=== PATIENT | male | born 1980 | race Caucasian/White ===

== ENCOUNTER 2022-01-14 22:37 | Inpatient (IN) | payer OTHER, SELFPAY ==
--- NOTE | ~2022-01-14 | XR_ITS ---
XR abdomen/kub 1V 01/17/2022 18:07 INDICATION: Abdominal pain TECHNIQUE: KUB COMPARISON: None FINDINGS: Bowel gas pattern is normal. Moderate colonic fecal loading. There is no evidence of free a ir, mass, organomegaly, ascites or obstruction. No abnormal calculi are seen. The bones appear inta ct. IMPRESSION: 1: No acute abdominal abnormality identified. Reviewed, dictated and finalized at location A.
--- NOTE | ~2022-01-14 | CT_ITS ---
EXAMINATION: CT cervical spine wo con DATE: 01/18/2022 15:15 INDICATION: Upper extremity weakness. TECHNIQUE: Computed tomography (CT) of the cervical spine was performed without intravenous contrast. Automated exposure control and iterative reconstruction technique were employed. The dose-length pro duct was 215.07 mGy-cm. COMPARISON: None FINDINGS: There is mild emphysema. Bone alignment is normal. Vertebral body heights and intervertebra l disc heights are normal. The following disc levels are specifically discussed: C2-C3: There is no uncovertebral joint osteoarthritis. There is mild bilateral facet joint osteoarthr itis. There is no neural foraminal stenosis. There is no central canal stenosis. C3-C4: There is mild bilateral uncovertebral joint osteoarthritis. There is no facet joint osteoarthr itis. There is no neural foraminal stenosis. There is no central canal stenosis. C4-C5: There is no uncovertebral joint osteoarthritis. There is mild left facet joint osteoarthritis. There is no neural foraminal stenosis. There is no central canal stenosis. C5-C6: There is mild bilateral uncovertebral joint osteoarthritis. There is mild bilateral facet join t osteoarthritis. There is mild right neural foraminal stenosis. There is mild central canal stenosis . C6-C7: There is no uncovertebral joint osteoarthritis. There is mild right facet joint osteoarthritis . There is no neural foraminal stenosis. There is no central canal stenosis. C7-T1: There is no uncovertebral joint osteoarthritis. There is mild bilateral facet joint osteoarthr itis. There is no neural foraminal stenosis. There is no central canal stenosis. IMPRESSION: 1. Mild cervical spondylosis. 2. Mild emphysema. Reviewed, dictated and finalized at location A.
--- NOTE | ~2022-01-14 | XR_ITS ---
EXAMINATION: XR chest 1V portable Exam Date/Time: 01/14/2022 23:00 CDT HISTORY: AMS Comparison: None available. RESULT: Lines, tubes, and devices: None. Lungs and pleura: Clear. Cardiomediastinal silhouette: Unremarkable. Other: No acute osseous or upper abdominal finding. IMPRESSION: No acute cardiopulmonary process. Reviewed, dictated and finalized at location K.
--- NOTE | ~2022-01-14 | CT_ITS ---
EXAMINATION: CT brain wo con DATE: 01/14/2022 23:16 INDICATION: Altered mental status. TECHNIQUE: Computed tomography (CT) of the head was performed without intravenous contrast. The mA wa s adjusted according to patient size. Iterative reconstruction technique was employed. The dose-lengt h product was 605.33 mGy-cm. COMPARISON: None FINDINGS: There is no intracranial hemorrhage, acute infarction, or abnormal intracranial mass lesion . The ventricles are normal in size. There is mucosal thickening in the paranasal sinuses. The orbits are normal. The mastoid air cells are normal. IMPRESSION: 1. Normal brain. Reviewed, dictated and finalized at location A. IMPRESSION: 1. Normal brain.
--- NOTE | ~2022-01-14 | CT_ITS ---
EXAMINATION: CT brain wo con DATE: 01/18/2022 15:15 INDICATION: Upper extremity weakness. TECHNIQUE: Computed tomography (CT) of the head was performed without intravenous contrast. The mA wa s adjusted according to patient size. Iterative reconstruction technique was employed. The dose-lengt h product was 681.00 mGy-cm. COMPARISON: Head CT 01/14/2022 FINDINGS: There is no intracranial hemorrhage, acute infarction, or abnormal intracranial mass lesion . The ventricles are normal in size. The orbits are normal. There is mucosal thickening in the parana rosie sinuses. The mastoid air cells are normal. IMPRESSION: 1. Normal brain. Reviewed, dictated and finalized at location A. IMPRESSION: 1. Normal brain.
[2022-01-14 22:36] VITALS: BP 165/100; PULSE 47; RESP 17; O2SAT 100
[2022-01-14 22:46] VITALS: BP 155/101; PULSE 64; RESP 12; O2SAT 100
--- NOTE | 2022-01-14 22:51 | ECG_ITS ---
Measurements Intervals [place] Rate: 60 P: 60 MT: 147 QRS: 72 QRSD: 94 T: 71 QT: 430 QTc: 432 Interpretive Statements SINUS RHYTHM CONSIDER ANTERIOR INFARCT, AGE INDETERMINATE BORDERLINE T WAVE ABNORMALITY- ANTERIOR LEADS ABNORMAL ECG NO PREVIOUS ECG AVAILABLE FOR COMPARISON Electronically Signed On 01-15-2022 10:27:25 CDT by Siddhartha Harrison D.O.
[2022-01-14 22:52] LABS: Glucose Point of Care 131 mg/dl (65-105)
[2022-01-14 23:01] VITALS: BP 161/96; PULSE 56; RESP 16; O2SAT 100
[2022-01-14 23:16] VITALS: BP 136/107; PULSE 57; RESP 15
[2022-01-14] MEDS: SODIUM CHLORIDE 0.9% IV 1,000 ML 999 ML IV CONT (23:30)
[2022-01-14 23:31] VITALS: BP 154/110; PULSE 48; RESP 12; O2SAT 100
[2022-01-14 23:49] LABS: Alanine Aminotransferase 26 U/L (6-50); Albumin Level 4.2 g/dL (3.5-5.1); Alkaline Phosphatase 82 U/L (38-126); Anion Gap 12 mmol/L (8-16); Aspartate Amino Transferase 30 U/L (17-59); Bilirubin,Total 0.5 mg/dL (0.2-1.3); Blood Urea Nitrogen 16 mg/dL (9-20); Calcium 8.9 mg/dL (8.4-10.2); Carbon Dioxide 25 mmol/L (22-30); Chloride 100 mmol/L (98-107); Estimated Glomerular Filt Rate > 60; Glucose 106 mg/dL (65-110); Lipase 37 U/L (23-300); Magnesium 1.9 mg/dL (1.6-2.3); Potassium 3.7 mmol/L (3.4-5.0); Sodium 137 mmol/L (137-145)
[2022-01-14 23:50] LABS: Lactic Acid Reflex 1.4 mmol/L (0.7-2.0)
[2022-01-14 23:55] LABS: Prothrombin Time 13.1 Seconds (11.1-14.7)
[2022-01-14 23:58] LABS: NT Pro B Type Natriuretic Pept 203 pg/mL (5-100)
[2022-01-15] VITALS (15 sets, daily range): BP systolic 136–171; BP diastolic 79–113; PULSE 55–84; RESP 11–24; TEMP 36–37.3; O2SAT 98–100; BMI 21.2
[2022-01-15] LABS: Troponin I < 0.012 ng/mL (0.000-0.034)
[2022-01-15 01:03] LABS: Bilirubin Urine Negative (Negative); Blood Urine Negative (Negative); Color Urine Yellow (Yellow); Glucose Urine UA Negative (Negative); Ketones Urine Negative (Negative); Leukocyte Esterase Ur Negative LEU/UL (Negative); Nitrate Urine Negative (Negative); Protein Urine Negative (Negative); Specific Grav Ur 1.025 (1.001-1.035); Urobilinogen Urine 0.2 mg/dL (<2.0)
[2022-01-15 01:05] LABS: Barbiturate Screen Urine Negative (Negative); Benzodiazepines Screen Urine Negative (Negative)
[2022-01-15 01:08] LABS: Mucus Urine Rare /lpf; WBC Urine 21-30 /hpf
[2022-01-15 01:12] LABS: Add Urine Microscopic? YES; Appearance Urine Slightly Cloudy (Clear)
[2022-01-15 01:20] LABS: Cannabinoid Screen Urine Positive (Negative); Cocaine Screen Urine Negative (Negative); Methadone Screen Urine Negative (Negative); Opiate Screen Urine Negative (Negative); Phencyclidine Screen Urine Negative (Negative)
[2022-01-15 01:21] LABS: Basophils Percent Auto 0.2 % (0.2-1.2); Eosinophils Percent Auto 0.3 % (0-4.4); Hematocrit 37.9 % (42.0-52.0); Hemoglobin 12.3 g/dL (14.0-18.0); Immature Granulocyte Absolute 0.04 K/mm3 (0.00-0.031); Immature Granulocyte Percent A 0.3 % (0-0.5); Lymphocytes Absolute Auto 0.99 K/mm3 (0.9-3.2); Lymphocytes Percent Auto 7.4 % (18.3-44.2); Mean Corpuscular HGB Conc 32.5 g/dl (32-36); Mean Corpuscular Hemoglobin 27.6 pg (26-34); Mean Corpuscular Volume 85.2 fl (80-100); Mean Platelet Volume 10.5 fl (7.4-10.4); Monocytes Absolute Auto 0.7 K/mm3 (0.1-0.6); Monocytes Percent Auto 5.1 % (2.6-8.5); Neutrophils Absolute Auto 11.6 K/mm3 (1.3-6.7); Neutrophils Percent Auto 86.7 % (45.5-73.1); Platelet Count Result 237 k/mm3 (150-375); Red Blood Count 4.45 M/mm3 (4.6-6.20); Red Cell Distribution Width 12.9 % (11.5-14.5); White Blood Count 13.4 K/mm3 (4.5-10.0)
[2022-01-15 01:46] LABS: Amphetamine Screen Urine Positive (Negative)
[2022-01-15] MEDS: BUPRENORPHINE HCL (*CRX) 2 MG SUBLINGUAL TABLET 8 MG PO (01:46)
[2022-01-15] MEDS: BUPRENORPHINE HCL (*CRX) 2 MG SUBLINGUAL TABLET 4 MG PO ×2 (04:50→11:34)
[2022-01-15] MEDS: ONDANSETRON INJ 4 MG/2 ML VIAL 8 MG IV PUSH (04:55)
--- NOTE | 2022-01-15 05:26 | ED.GENADULT ---
HPI - General Adult General Chief complaint: Abdominal Pain Stated complaint: N/V/OPIOD W/D Time Seen by Provider: 01/14/22 22:41 History of Present Illness HPI narrative: This is a 41-year-old male presenting to ED after being found by EMS in the street. Patient was recently released from retirement 3 days ago. That was the last time he used fentanyl. Now he is homeless. He has not used fentanyl 3 days and is now complaining of nausea/vomiting abdominal pain and headache. Patient denies use of other illicit drugs or alcohol. Patient denies trauma. Denies fever chills chest pain or difficulty breathing. Related Data Allergies Allergy/AdvReac Type Severity Reaction Status Date / Time No Known Allergies Allergy Verified 01/14/22 22:54 Review of Systems Review of Systems: CONSTITUTIONAL: Denies night sweats. EYES: No eye pain ENT: Denies rhinorrhea CARDIOVASCULAR: Denies palpitations RESPIRATORY: Denies hemoptysis GASTROINTESTINAL: Denies hematemesis GENITOURINARY: Denies hematuria. SKIN: Denies rash MUSCULOSKELETAL: Denies myalgia. NEUROLOGIC: Denies weakness. PSYCHIATRIC: Denies delusions PMF Past Medical History Medical History (Updated 01/15/22 @ 06:16 by Shantanu Grier MD) Homeless Opioid use disorder Social History Social History (Updated 01/15/22 @ 05:28 by Shantanu Grier MD) Social History: Positive for fentanyl use. Exam Narrative: APPEARANCE: Patient is disheveled and malodorous. He is A&O x3. Head atraumatic. EYES: PERRLA/EOMI, Pupils 2 mm equal and reactive. NOSE: Normal no drainage NECK: Supple, Trachea midline RESPIRATORY: CTAB, No increased work of breathing. CARDIOVASCULAR: S1S2 appreciated ABDOMINAL: Soft, nontender, nondistended, MUSCULOSKELETAl: No obvious deformities NEURO: Alert. Moving 4/4 extremities SKIN:: Patient has goose bumps, skin is warm dry. Patient has tried turned on his hands. PSYCHIATRIC: Normal affect Course Vital Signs Vital signs: Vital Signs Pulse Rate 47 L 01/14/22 22:36 Respiratory Rate 17 01/14/22 22:36 Blood Pressure 165/100 H 01/14/22 22:36 Pulse Oximetry 100 01/14/22 22:36 Pulse Rate 60 01/15/22 05:37 Respiratory Rate 18 01/15/22 05:37 Blood Pressure 139/97 H 01/15/22 05:37 Pulse Oximetry 100 01/15/22 05:37 Medical Decision Making [facility] Narrative Medical decision making narrative: This is a 41-year-old male who was found down by EMS. When he first arrived he was unable to provide much information and a broad workup was ordered. CT head was negative for any acute intracranial process. Lab work revealed a mildly elevated white blood cell count but no evidence of infection. Hemoglobin was 12.3. Basic metabolic panel is within normal limits. Urinalysis was positive for red blood cells and 21-30 white blood cells. Patient started on ceftriaxone. Drug screen is positive for amphetamines and cannabinoids. It is negative for opiates however the patient admits to using fentanyl was not show up on our drug screens. Chest x-ray was negative for any acute cardiopulmonary process. COWS Score for Opiate Withdrawal from [email or web address] on 01/15/2022 All calculations should be rechecked by clinician prior to use RESULT SUMMARY: 18 points Moderate withdrawal INPUTS: Resting Pulse Rate (BPM) ?> 0 = <=0 Sweating ?> 1 = Subjective report of chills or flushing Restlessness observation during assessment ?> 1 = Reports difficulty sitting still, but is able to do so Pupil size ?> 1 = Pupils possibly larger than normal for room light Bone or joint aches ?> 2 = Patient reports severe diffuse aching of joints/ muscles Runny nose or tearing ?> 1 = Nasal stuffiness or unusually moist eyes GI Upset ?> 3 = Vomiting or diarrhea Tremor observation of outstretched hands ?> 2 = Slight tremor observable Yawning observation during assessment ?> 2 = Yawning three or more times during assessment Anxiety or irritability ?>
--- NOTE | 2022-01-15 05:41 | PC.NURSE ---
Pt PO challenged with fiona skinner and carline crespo
[2022-01-15] MEDS: PROCHLORPERAZINE EDISYLATE 10 MG/2 ML VIAL IV PUSH (05:52)
[2022-01-15] MEDS: FAMOTIDINE 20 MG/2 ML VIAL IV PUSH ×2 (05:56→21:33)
[2022-01-15] MEDS: SODIUM CHLORIDE 0.9% IV 1,000 ML 999 ML IV CONT (06:01)
[2022-01-15 06:54] LABS: Ethanol < 10 mg/dL (<10)
[2022-01-15 07:13] LABS: SARS-CoV-2 RNA PCR Negative
--- NOTE | 2022-01-15 08:07 | PC.NURSE ---
When collecting pt belongings this RN only found one earing. Confirmed with pt that that is all he has on him.
--- NOTE | 2022-01-15 08:34 | ADMGEN ---
This patient, Tadeo Maher, was admitted to [facility] Surg Room 305-02. Patient/family oriented to hospital policies and general routines including ID bracelet, bed and alarms, visiting hours, pain management, procedures, bathroom and other care routines, personal items, smoking policy, room service/diet, and visiting hours. Information on how to activate the Rapid Response Team has been discussed. Patient/Family are encouraged to report perceived risks to care and to ask questions if they do not understand what they are told or what they should do.
[2022-01-15] MEDS: SODIUM CHLORIDE 0.9% IV 1,000 ML 125 ML IV CONT (10:23)
[2022-01-15] MEDS: cloNIDine HCL 0.1 MG TABLET PO ×2 (10:23→21:32)
--- NOTE | 2022-01-15 12:08 | PCNSR ---
On 01/15/22, the student,Art Salazar, provided care and completed [employer] documentation on this patient. I have reviewed the student's documentation and agree with the findings.
--- NOTE | 2022-01-15 19:12 | PM.IMHP ---
H&P: HPI History of Present Illness Date/Time: 01/15/22 19:12 Chief Complaint: 41-year-old male with past medical history significant for opioid use disorder is presenting with nausea, vomiting abdominal pain. Patient was found by EMS in the street and thought to be homeless. He was released from senior living about 3 days ago. He states he used fentanyl about 3 days ago and has not used any other substances including alcohol since then. He was given Suboxone and antiemetics in the ER that helped significantly. At the time my evaluation, the patient denies chest pain or shortness of breath. No nausea, vomiting or diarrhea. No fevers or chills. He states he has been on Suboxone in the past when trying to come off of fentanyl. He is not in any clinics now but is interested in getting back into one. He would like to get off fentanyl and get help. He has had clonidine in the past, and this helped with his withdrawal symptoms so he is requesting this again. Review of Systems Review of Systems: 12 point review of systems was assessed and was negative except as noted in the HPI PMFSH Past Medical History Medical History Homeless Opioid use disorder Family History Family History Other No known health problems Social History Social History Social History: Positive for fentanyl use. Years smoked: 20 Smoking status: Current every day smoker Tobacco type: cigarettes and e-cigarettes/vaping Alcohol intake: never Substance use: current Substance use type: marijuana, methamphetamine and other Spiritual care concerns: No Meds Home Medications and Allergies Home Medications Medication Instructions Recorded Confirmed Type No Home Medications 01/15/22 01/15/22 History Allergies Allergy/AdvReac Type Severity Reaction Status Date / Time No Known Allergies Allergy Verified 01/15/22 08:26 Vital Signs Vital Signs - 24 hr 01/14/22 22:36 01/15/22 01:54 01/15/22 05:37 Temperature Pulse Rate 47 L 55 L 60 Respiratory Rate 17 15 18 Blood Pressure 165/100 H 142/109 H 139/97 H Pulse Oximetry 100 100 100 Oxygen Delivery 01/14/22 22:46 01/14/22 23:01 01/14/22 23:16 Temperature Pulse Rate 64 56 L 57 L Respiratory Rate 12 16 15 Blood Pressure 155/101 H 161/96 H 136/107 H Pulse Oximetry 100 100 Oxygen Delivery 01/14/22 23:31 01/15/22 00:01 01/15/22 00:16 Temperature Pulse Rate 48 L 75 Respiratory Rate 12 24 H Blood Pressure 154/110 H 155/109 H 171/113 H Pulse Oximetry 100 Oxygen Delivery 01/15/22 01:57 01/15/22 02:01 01/15/22 02:46 Temperature Pulse Rate 60 56 L 67 Respiratory Rate 18 12 15 Blood Pressure 142/109 H 139/101 H 145/93 H Pulse Oximetry Oxygen Delivery 01/15/22 03:31 01/15/22 05:38 01/15/22 05:46 Temperature Pulse Rate 66 62 59 L Respiratory Rate 17 11 L 12 Blood Pressure 136/86 139/97 H 140/94 H Pulse Oximetry Oxygen Delivery 01/15/22 06:31 01/15/22 07:12 01/15/22 08:36 Temperature 98.3 F 97.5 F L Pulse Rate 61 84 69 Respiratory Rate 15 16 19 Blood Pressure 157/108 H 155/94 H 145/90 H Pulse Oximetry 98 99 Oxygen Delivery 01/15/22 08:25 01/15/22 14:00 Temperature 96.8 F L Pulse Rate 65 Respiratory Rate 18 Blood Pressure 139/79 Pulse Oximetry 100 Oxygen Delivery Room Air Exam Narrative: General: No acute distress, alert and oriented per baseline HEENT: Atraumatic, normocephalic, mucous membranes moist CV: Regular rate and rhythm, S1, S2 Lungs: Clear to auscultation bilaterally, no rales or crackles noted, no wheezes, good air entry Abdomen: Soft, nontender, nondistended Extremities: Normal to inspection Skin: No rashes noted, no lesions or wounds seen Psych: Euthymic, normal affect H&P: Results Labs Labs: Short CBC
[2022-01-16 05:41] VITALS: BP 136/88; PULSE 56; RESP 18; TEMP 36.9; O2SAT 100
[2022-01-16] MEDS: BUPRENORPHINE HCL (*CRX) 2 MG SUBLINGUAL TABLET 4 MG PO (08:40)
[2022-01-16] MEDS: cloNIDine HCL 0.1 MG TABLET PO ×2 (08:41→20:13)
[2022-01-16] MEDS: hydrOXYzine HCL 25 MG TABLET PO (08:43)
[2022-01-16] MEDS: FAMOTIDINE 20 MG/2 ML VIAL IV PUSH ×2 (08:43→20:13)
[2022-01-16 10:09] LABS: Basophils Percent Auto 0.4 % (0.2-1.2); Eosinophils Absolute Auto 0.1 K/mm3 (0-0.3); Eosinophils Percent Auto 0.7 % (0-4.4); Hematocrit 39.6 % (42.0-52.0); Hemoglobin 12.7 g/dL (14.0-18.0); Immature Granulocyte Absolute 0.03 K/mm3 (0.00-0.031); Immature Granulocyte Percent A 0.4 % (0-0.5); Lymphocytes Absolute Auto 1.11 K/mm3 (0.9-3.2); Lymphocytes Percent Auto 14.6 % (18.3-44.2); Mean Corpuscular HGB Conc 32.1 g/dl (32-36); Mean Corpuscular Hemoglobin 27.6 pg (26-34); Mean Corpuscular Volume 86.1 fl (80-100); Mean Platelet Volume 10.8 fl (7.4-10.4); Monocytes Absolute Auto 0.8 K/mm3 (0.1-0.6); Monocytes Percent Auto 10.5 % (2.6-8.5); Neutrophils Absolute Auto 5.6 K/mm3 (1.3-6.7); Neutrophils Percent Auto 73.4 % (45.5-73.1); Platelet Count Result 266 k/mm3 (150-375); Red Cell Distribution Width 13.3 % (11.5-14.5); White Blood Count 7.6 K/mm3 (4.5-10.0)
[2022-01-16 10:19] LABS: Anion Gap 15 mmol/L (8-16); Blood Urea Nitrogen 13 mg/dL (9-20); Calcium 8.9 mg/dL (8.4-10.2); Carbon Dioxide 23 mmol/L (22-30); Chloride 99 mmol/L (98-107); Estimated CRCL calculation 144 ml/min; Estimated Glomerular Filt Rate > 60; Glucose 126 mg/dL (65-110); Potassium 3.4 mmol/L (3.4-5.0); Sodium 137 mmol/L (137-145)
--- NOTE | 2022-01-16 10:44 | PM.IMPN ---
Progress Note: A&P Assessment and Plan (1) Opiate withdrawal: Code(s): F11.93 - Opioid use, unspecified with withdrawal Status: Acute Assessment and Plan: Suboxone 4 mg daily, care coordination consult for Suboxone Clinic outpatient referral, clonidine and hydroxyzine for withdrawal symptoms, IV fluids, supportive care with antiemetics 01/16: will continue supportive care for today as patient appears to still be having significant withdrawal symptoms but does still say he wants to abstain from opioid use. Continue IVF for now. (2) Homeless: Code(s): Z59.00 - Homelessness unspecified Status: Acute Assessment and Plan: Care coordination consulting. (3) Opioid use disorder: Code(s): F11.90 - Opioid use, unspecified, uncomplicated Status: Acute Assessment and Plan: See above (4) Leukocytosis: Code(s): D72.829 - Elevated white blood cell count, unspecified Status: Acute Assessment and Plan: Could be reactive, could be secondary to UTI, trend. 01/16: leukocytosis resolve without antibiotics. (5) Acute UTI: Code(s): N39.0 - Urinary tract infection, site not specified Status: Acute Assessment and Plan: Started on Rocephin in the ER, will continue this until culture comes back, urinalysis was abnormal 01/16: urine culture finalized with no growth. Plan DVT prophylaxis with SCDs GI prophylaxis not indicated Code status full code Subjective Date/time seen: 01/16/22 23:44 Patient still says he doesn't feel well. Says he has nausea. Denies vomiting. Denies palpitations or diarrhe. Review of Systems Gastrointestinal: Gastrointestinal: Denies diarrhea, Reports nausea and Denies vomiting Exam Narrative: General: No acute distress, alert and oriented per baseline HEENT: Atraumatic, normocephalic, mucous membranes moist CV: Regular rate and rhythm, S1, S2 Lungs: Clear to auscultation bilaterally, no rales or crackles noted, no wheezes Extremities: Normal to inspection Skin: No rashes noted, no lesions or wounds seen. Multiple tattoos. Diaphoretic/sweaty Objective Data Vital Signs Vital Signs: Vital Signs - 24 hr 01/16/22 05:41 01/16/22 14:00 01/16/22 08:30 Temperature 98.4 F 97.4 F L Pulse Rate 56 L 61 Respiratory Rate 18 18 Blood Pressure 136/88 122/74 Pulse Oximetry 100 100 Oxygen Delivery Room Air 01/16/22 22:00 Temperature 98.1 F Pulse Rate 60 Respiratory Rate 18 Blood Pressure 130/93 H Pulse Oximetry 100 Oxygen Delivery Intake/Output Intake/Output: Intake & Output 01/13/22 01/14/22 01/15/22 01/16/22 23:59 23:59 23:59 23:59 Intake Total 4590 2195 Output Total 1470 1850 Balance 3120 345 Meds/Results Medications: Active Medications Generic Name Dose Route Start Last Admin Trade Name Freq PRN Reason Stop Dose Admin Buprenorphine HCl 4 mg 01/15/22 09:45 01/16/22 08:40 Buprenorphine Hcl (*Crx) 2 Mg Sublingual Tablet PO 4 mg DAILY MAYRA Administration Clonidine HCl 0.1 mg 01/15/22 09:45 01/16/22 20:13 Clonidine Hcl 0.1 Mg Tablet PO 0.1 mg Q12HR MAYRA Administration Famotidine 20 mg 01/15/22 21:00 01/16/22 20:13 Famotidine 20 Mg/2 Ml Vial IV PUSH 20 mg Q12HR MAYRA Administration Hydroxyzine HCl 25 mg 01/15/22 09:46 01/16/22 08:43 Hydroxyzine Hcl 25 Mg Tablet PO 25 mg Q6H PRN Administration anxiety Sodium Chloride 1,000 mls @ 125 mls/hr 01/15/22 09:45 01/16/22 20:16 Normal Saline Iv IV CONT Not Given .Q8H MAYRA Prochlorperazine Edisylate 10 mg 01/15/22 09:46 Prochlorperazine Edisylate 10 Mg/2 Ml Vial IV PUSH Q6H PRN Nausea And Vomiting Radiology Results: ITS Impressions Chest X-Ray 01/14/22 23:30 IMPRESSION: No acute cardiopulmonary process. Head CT 01/15/22 07:07 IMPRESSION: 1. Normal brain. Labs Labs: Laboratory Results - last 24 hr
[2022-01-16] MEDS: SODIUM CHLORIDE 0.9% IV 1,000 ML 125 ML IV CONT ×2 (12:28→20:15)
[2022-01-16 14:00] VITALS: BP 122/74; PULSE 61; RESP 18; TEMP 36.3; O2SAT 100
[2022-01-16 22:00] VITALS: BP 130/93; PULSE 60; RESP 18; TEMP 36.7; O2SAT 100
[2022-01-17] MEDS: SODIUM CHLORIDE 0.9% IV 1,000 ML 125 ML IV CONT (05:40)
[2022-01-17 06:00] VITALS: BP 132/92; PULSE 55; RESP 17; TEMP 37.1; O2SAT 100
[2022-01-17 07:05] LABS: Anion Gap 8 mmol/L (8-16); Blood Urea Nitrogen 15 mg/dL (9-20); Calcium 8.8 mg/dL (8.4-10.2); Carbon Dioxide 27 mmol/L (22-30); Chloride 100 mmol/L (98-107); Estimated CRCL calculation 110 ml/min; Estimated Glomerular Filt Rate > 60; Glucose 95 mg/dL (65-110); Phosphorus 3.9 mg/dL (2.5-4.5); Potassium 4.7 mmol/L (3.4-5.0); Sodium 135 mmol/L (137-145)
[2022-01-17] MEDS: BUPRENORPHINE HCL (*CRX) 2 MG SUBLINGUAL TABLET 4 MG PO (08:31)
[2022-01-17] MEDS: cloNIDine HCL 0.1 MG TABLET PO ×2 (08:31→21:29)
[2022-01-17] MEDS: FAMOTIDINE 20 MG/2 ML VIAL IV PUSH ×2 (08:31→21:29)
--- NOTE | 2022-01-17 09:31 | PM.IMPN ---
Progress Note: A&P Assessment and Plan (1) Opiate withdrawal: Code(s): F11.93 - Opioid use, unspecified with withdrawal Status: Acute Assessment and Plan: Suboxone 4 mg daily, care coordination consult for Suboxone Clinic outpatient referral, clonidine and hydroxyzine for withdrawal symptoms, IV fluids, supportive care with antiemetics 01/16: will continue supportive care for today as patient appears to still be having significant withdrawal symptoms but does still say he wants to abstain from opioid use. Continue IVF for now. 01/17: Patient is more awake in the afternoon than in the morning. Was caught wandering off the floor today. Still appears to be having significant withdrawal with body aches, abdominal pain and diaphoresis. BP has been improving. Will work to titrate off clonidine tomorrow as it may be contributing to the morning sedation and BP has improved. Notable perspiration on exam as well. Will likely need to remain hospitalized for another 1-2 days. -Continue hydroxyzine for anxiety -Dicyclomine ordered for abdominal cramping -Continue clonidine for BP -Ibuprofen for myalgias and joint pain -Discontinue IVF (2) Homeless: Code(s): Z59.00 - Homelessness unspecified Status: Acute Assessment and Plan: Care coordination currently working toward placement for inpatient rehab as soon as possible. (3) Opioid use disorder: Code(s): F11.90 - Opioid use, unspecified, uncomplicated Status: Acute Assessment and Plan: See above (4) Leukocytosis: Code(s): D72.829 - Elevated white blood cell count, unspecified Status: Acute Assessment and Plan: Could be reactive, could be secondary to UTI, trend. 01/16: leukocytosis resolve without antibiotics. (5) Acute UTI: Code(s): N39.0 - Urinary tract infection, site not specified Status: Acute Assessment and Plan: Started on Rocephin in the ER, will continue this until culture comes back, urinalysis was abnormal 01/16: urine culture finalized with no growth. Plan DVT prophylaxis with SCDs GI prophylaxis not indicated Code status full code Subjective Date/time seen: 01/17/22 17:31 Patient reports lower abdominal pain pointing to the suprapubic area when asked where his abdominal pain is located. He denies vomiting. Says he still feels terrible. Patient discussed with Case Management who has sent referrals to two inpatient rehabilitation facilities that are local. Patient is still willing to go to rehab. Review of Systems Integumentary/Breasts: Skin/Breast: Denies dry skin Exam Narrative: General: No acute distress, alert and oriented per baseline HEENT: Atraumatic, normocephalic, mucous membranes moist CV: Regular rate and rhythm, S1, S2 Lungs: Clear to auscultation bilaterally, no rales or crackles noted, no wheezes Extremities: Normal to inspection Skin: No rashes noted, no lesions or wounds seen. Multiple tattoos. Diaphoretic/sweaty Objective Data Vital Signs Vital Signs: Vital Signs - 24 hr 01/16/22 22:00 01/17/22 06:00 01/17/22 08:00 Temperature 98.1 F 98.7 F Pulse Rate 60 55 L Respiratory Rate 18 17 Blood Pressure 130/93 H 132/92 H Pulse Oximetry 100 100 Oxygen Delivery Room Air 01/17/22 13:55 Temperature 97.3 F L Pulse Rate 57 L Respiratory Rate 16 Blood Pressure 114/73 Pulse Oximetry 99 Oxygen Delivery Intake/Output Intake/Output: Intake & Output 01/14/22 01/15/22 01/16/22 01/17/22 23:59 23:59 23:59 23:59 Intake Total 4590 2195 1480 Output Total 1470 1850 2000 Balance 3120 345 -520 Meds/Results Medications: Active Medications Generic Name Dose Route Start Last Admin Trade Name Freq PRN Reason Stop Dose Admin Buprenorphine HCl 4 mg 01/15/22 09:45 01/17/22 08:31 Buprenorphine Hcl (*Crx) 2 Mg Sublingual Tablet PO 4 mg DAILY MAYRA Administration Clonidine HCl 0.1 m
[2022-01-17 13:55] VITALS: BP 114/73; PULSE 57; RESP 16; TEMP 36.3; O2SAT 99
[2022-01-17] MEDS: hydrOXYzine HCL 25 MG TABLET PO (18:06)
[2022-01-17 22:00] VITALS: BP 123/76; PULSE 63; RESP 18; TEMP 36.8; O2SAT 98
[2022-01-18 05:42] VITALS: BP 124/87; PULSE 61; RESP 17; TEMP 36.9; O2SAT 99
[2022-01-18] MEDS: cloNIDine HCL 0.1 MG TABLET PO ×2 (09:07→21:13)
[2022-01-18] MEDS: FAMOTIDINE 20 MG/2 ML VIAL IV PUSH ×2 (09:07→21:13)
[2022-01-18] MEDS: BUPRENORPHINE HCL (*CRX) 2 MG SUBLINGUAL TABLET 4 MG PO (09:07)
[2022-01-18] MEDS: polyethylene glycoL 3350 17 GM POWD.PACK PO (09:08)
[2022-01-18] MEDS: DICYCLOMINE HCL 10 MG CAPSULE PO (09:11)
[2022-01-18 14:00] VITALS: BP 112/76; PULSE 70; RESP 16; TEMP 36.8; O2SAT 98
--- NOTE | 2022-01-18 17:54 | PM.IMPN ---
Progress Note: A&P Assessment and Plan (1) Opiate withdrawal: Code(s): F11.93 - Opioid use, unspecified with withdrawal Status: Acute Assessment and Plan: Suboxone 4 mg daily, care coordination consult for [facility] outpatient referral, clonidine and hydroxyzine for withdrawal symptoms, IV fluids, supportive care with antiemetics 01/16: will continue supportive care for today as patient appears to still be having significant withdrawal symptoms but does still say he wants to abstain from opioid use. Continue IVF for now. 01/17: Patient is more awake in the afternoon than in the morning. Was caught wandering off the floor today. Still appears to be having significant withdrawal with body aches, abdominal pain and diaphoresis. BP has been improving. Will work to titrate off clonidine tomorrow as it may be contributing to the morning sedation and BP has improved. Notable perspiration on exam as well. Patient has been accepted to inpatient rehab facility planned for Friday. -Continue hydroxyzine for anxiety -Dicyclomine ordered for abdominal cramping -Will work to remove clonidine over the weekend -Ibuprofen for myalgias and joint pain (2) Homeless: Code(s): Z59.00 - Homelessness unspecified Status: Acute Assessment and Plan: Has been accepted to inpatient rehab facility planned for Friday. (3) Opioid use disorder: Code(s): F11.90 - Opioid use, unspecified, uncomplicated Status: Acute Assessment and Plan: See above (4) Leukocytosis: Code(s): D72.829 - Elevated white blood cell count, unspecified Status: Acute Assessment and Plan: Could be reactive, could be secondary to UTI, trend. 01/16: leukocytosis resolve without antibiotics. (5) Acute UTI: Code(s): N39.0 - Urinary tract infection, site not specified Status: Acute Assessment and Plan: Started on Rocephin in the ER, will continue this until culture comes back, urinalysis was abnormal 01/16: urine culture finalized with no growth. Plan DVT prophylaxis with SCDs GI prophylaxis not indicated Code status full code Subjective Date/time seen: 01/18/22 17:54 Patient denies rhinorrhea. Reports feeing restlessness, muscle aches, back pain. Review of Systems Musculoskeletal: Musculoskeletal: Reports back pain and Reports myalgias Exam Narrative: General: No acute distress, alert and oriented per baseline HEENT: Atraumatic, normocephalic, mucous membranes moist CV: Regular rate and rhythm, S1, S2 Lungs: Clear to auscultation bilaterally, no rales or crackles noted, no wheezes Extremities: Normal to inspection Skin: No rashes noted, no lesions or wounds seen. Multiple tattoos. No longer diaphoretic. Objective Data Vital Signs Vital Signs: Vital Signs - 24 hr 01/17/22 22:00 01/18/22 05:42 01/18/22 14:00 Temperature 98.2 F 98.4 F 98.3 F Pulse Rate 63 61 70 Respiratory Rate 18 17 16 Blood Pressure 123/76 124/87 112/76 Pulse Oximetry 98 99 98 Intake/Output Intake/Output: Intake & Output 01/15/22 01/16/22 01/17/22 01/18/22 23:59 23:59 23:59 23:59 Intake Total 4590 2195 2340 1770 Output Total 1470 1850 2000 4300 Balance 3120 345 340 -2530 Meds/Results Medications: Active Medications Generic Name Dose Route Start Last Admin Trade Name Freq PRN Reason Stop Dose Admin Buprenorphine HCl 4 mg 01/15/22 09:45 01/18/22 09:07 Buprenorphine Hcl (*Crx) 2 Mg Sublingual Tablet PO 4 mg DAILY MAYRA Administration Clonidine HCl 0.1 mg 01/15/22 09:45 01/18/22 09:07 Clonidine Hcl 0.1 Mg Tablet PO 0.1 mg Q12HR MAYRA Administration Dicyclomine HCl 10 mg 01/17/22 17:36 01/18/22 09:11 Dicyclomine Hcl 10 Mg Capsule PO 10 mg TID PRN Administration Abdominal Cramping Famotidine 20 mg 01/15/22 21:00 01/18/22 09:07 Famotidine 20 Mg/2 Ml Vial IV PUSH 20 mg Q12HR MAYRA Administration Hydr
[2022-01-18] MEDS: hydrOXYzine HCL 25 MG TABLET PO (21:17)
[2022-01-18 22:00] VITALS: BP 122/65; PULSE 66; RESP 17; TEMP 36.3; O2SAT 99
[2022-01-19 06:00] VITALS: BP 119/74; PULSE 54; RESP 18; TEMP 36.1; O2SAT 99
--- NOTE | 2022-01-19 07:53 | PM.IMPN ---
Progress Note: A&P Assessment and Plan (1) Opiate withdrawal: Code(s): F11.93 - Opioid use, unspecified with withdrawal Status: Acute Assessment and Plan: Suboxone 4 mg daily, care coordination consult for [facility] outpatient referral, clonidine and hydroxyzine for withdrawal symptoms, IV fluids, supportive care with antiemetics 01/16: will continue supportive care for today as patient appears to still be having significant withdrawal symptoms but does still say he wants to abstain from opioid use. Continue IVF for now. 01/17: Patient is more awake in the afternoon than in the morning. Was caught wandering off the floor today. Still appears to be having significant withdrawal with body aches, abdominal pain and diaphoresis. BP has been improving. Will work to titrate off clonidine tomorrow as it may be contributing to the morning sedation and BP has improved. Notable perspiration on exam as well. Patient has been accepted to inpatient rehab facility planned for Friday. -Continue hydroxyzine for anxiety -Dicyclomine ordered for abdominal cramping -Will work to remove clonidine over the weekend -Ibuprofen for myalgias and joint pain 01/19: Will hold clonidine due to low BP. (2) Homeless: Code(s): Z59.00 - Homelessness unspecified Status: Acute Assessment and Plan: Has been accepted to inpatient rehab facility planned for Friday. (3) Opioid use disorder: Code(s): F11.90 - Opioid use, unspecified, uncomplicated Status: Acute Assessment and Plan: Having some low blood pressures. Will hold clonidine. (4) Leukocytosis: Code(s): D72.829 - Elevated white blood cell count, unspecified Status: Acute Assessment and Plan: Could be reactive, could be secondary to UTI, trend. 01/16: leukocytosis resolve without antibiotics. (5) Acute UTI: Code(s): N39.0 - Urinary tract infection, site not specified Status: Acute Assessment and Plan: Started on Rocephin in the ER, will continue this until culture comes back, urinalysis was abnormal 01/16: urine culture finalized with no growth. (6) Weakness of upper extremity: Code(s): R29.898 - Other symptoms and signs involving the musculoskeletal system Status: Acute Assessment and Plan: Exam normal. CT head and cervical spine with no acute findings to explain the reported weakness. Advised patient he will need to follow up with Neurology. Plan DVT prophylaxis with SCDs GI prophylaxis not indicated Code status full code Subjective Date/time seen: 01/19/22 07:53 Patient says he feels better. Says he has weakness in his right hand and feels like he cannot open crackers and other small things with his left hand. Denies nausea. He says he feels tired. Review of Systems Gastrointestinal: Gastrointestinal: Denies nausea Exam Narrative: General: No acute distress, alert and oriented per baseline HEENT: Atraumatic, normocephalic, mucous membranes moist CV: Regular rate and rhythm, S1, S2 Lungs: Clear to auscultation bilaterally, no rales or crackles noted, no wheezes Extremities: Normal to inspection Skin: No rashes noted, no lesions or wounds seen. Multiple tattoos. No longer diaphoretic. Neuro: 5/5 bilateral upper and lower extremity strength. Objective Data Vital Signs Vital Signs: Vital Signs - 24 hr 01/18/22 14:00 01/18/22 22:00 01/19/22 06:00 Temperature 98.3 F 97.3 F L 97 F L Pulse Rate 70 66 54 L Respiratory Rate 16 17 18 Blood Pressure 112/76 122/65 119/74 Pulse Oximetry 98 99 99 Intake/Output Intake/Output: Intake & Output 01/16/22 01/17/22 01/18/22 01/19/22 23:59 23:59 23:59 23:59 Intake Total 2195 2340 1770 520 Output Total 1850 2000 4300 2650 Balance 345 964 -6153 -6103 Meds/Results Medications: Active Medications Generic Name Dose Route Start Last Admin Trade Name Panchitoq PRN Re
[2022-01-19] MEDS: BUPRENORPHINE HCL (*CRX) 2 MG SUBLINGUAL TABLET 4 MG PO (09:29)
[2022-01-19] MEDS: cloNIDine HCL 0.1 MG TABLET PO (09:29)
[2022-01-19] MEDS: hydrOXYzine HCL 25 MG TABLET PO ×2 (09:29→18:56)
[2022-01-19] MEDS: FAMOTIDINE 20 MG/2 ML VIAL IV PUSH ×2 (09:30→20:06)
[2022-01-19] MEDS: polyethylene glycoL 3350 17 GM POWD.PACK PO (09:30)
[2022-01-19] MEDS: DICYCLOMINE HCL 10 MG CAPSULE PO (09:30)
[2022-01-19 14:00] VITALS: BP 103/58; PULSE 63; RESP 16; O2SAT 98
[2022-01-19 22:00] VITALS: BP 120/68; PULSE 64; RESP 18; TEMP 35.9; O2SAT 99
[2022-01-20 06:00] VITALS: BP 116/82; PULSE 64; RESP 16; TEMP 36.2; O2SAT 97
[2022-01-20] MEDS: BUPRENORPHINE HCL (*CRX) 2 MG SUBLINGUAL TABLET 4 MG PO (08:13)
[2022-01-20] MEDS: DICYCLOMINE HCL 10 MG CAPSULE PO (08:13)
[2022-01-20] MEDS: hydrOXYzine HCL 25 MG TABLET PO ×3 (08:14→20:55)
[2022-01-20] MEDS: FAMOTIDINE 20 MG/2 ML VIAL IV PUSH ×2 (08:14→20:55)
[2022-01-20] MEDS: polyethylene glycoL 3350 17 GM POWD.PACK PO (08:14)
--- NOTE | 2022-01-20 12:42 | PM.IMPN ---
Progress Note: A&P Assessment and Plan (1) Opiate withdrawal: Code(s): F11.93 - Opioid use, unspecified with withdrawal Status: Acute Assessment and Plan: Suboxone 4 mg daily, care coordination consult for [facility] outpatient referral, clonidine and hydroxyzine for withdrawal symptoms, IV fluids, supportive care with antiemetics 01/16: will continue supportive care for today as patient appears to still be having significant withdrawal symptoms but does still say he wants to abstain from opioid use. Continue IVF for now. 01/17: Patient is more awake in the afternoon than in the morning. Was caught wandering off the floor today. Still appears to be having significant withdrawal with body aches, abdominal pain and diaphoresis. BP has been improving. Will work to titrate off clonidine tomorrow as it may be contributing to the morning sedation and BP has improved. Notable perspiration on exam as well. Patient has been accepted to inpatient rehab facility planned for Friday. -Continue hydroxyzine for anxiety -Dicyclomine ordered for abdominal cramping -Will work to remove clonidine over the weekend -Ibuprofen for myalgias and joint pain 01/19: Will hold clonidine due to low BP. 01/20: Will stop clonidine as normotensive and normal heart rate without it. (2) Homeless: Code(s): Z59.00 - Homelessness unspecified Status: Acute Assessment and Plan: Has been accepted to inpatient rehab facility planned for Friday. (3) Opioid use disorder: Code(s): F11.90 - Opioid use, unspecified, uncomplicated Status: Acute Assessment and Plan: Having some low blood pressures. Will hold clonidine. (4) Leukocytosis: Code(s): D72.829 - Elevated white blood cell count, unspecified Status: Acute Assessment and Plan: Could be reactive, could be secondary to UTI, trend. 01/16: leukocytosis resolve without antibiotics. (5) Acute UTI: Code(s): N39.0 - Urinary tract infection, site not specified Status: Acute Assessment and Plan: Started on Rocephin in the ER, will continue this until culture comes back, urinalysis was abnormal 01/16: urine culture finalized with no growth. (6) Weakness of upper extremity: Code(s): R29.898 - Other symptoms and signs involving the musculoskeletal system Status: Acute Assessment and Plan: Exam normal. CT head and cervical spine with no acute findings to explain the reported weakness. -Neurology Consult for right arm weakness Plan DVT prophylaxis with SCDs GI prophylaxis not indicated Code status full code Subjective Date/time seen: 01/20/22 12:42 Patient is much more awake. Held PM clonidine dose overnight due to low BP. Patient says he feels better. He does not know which of the medications that he takes help his stomach ache. He says his right arm still feels weak. Review of Systems Gastrointestinal: Gastrointestinal: Reports abdominal pain Neurologic: Comments: arm weakness Exam Narrative: GENERAL: NAD, cooperative HEENT: Normocephalic, atraumatic, anicteric, nares clear, oropharynx moist and clear, dentition normal NECK:Supple CV: Normal S1, S2, RRR, No MRG RESP: CTAB, Normal work of breathing. Abdomen: Soft, non-tender, non-distended, +BS EXTREMITIES: Warm and well perfused, no clubbing, cyanosis, or edema. SKIN: warm, dry and intact. Multiple tattoos. multiple excoriated scabs on upper extremities. NEURO: CN II-XII grossly intact. Alert and oriented. Objective Data Vital Signs Vital Signs: Vital Signs - 24 hr 01/19/22 14:00 01/19/22 22:00 01/20/22 06:00 Temperature 35.9 C L 36.2 C L Pulse Rate 63 64 64 Respiratory Rate 16 18 16 Blood Pressure 103/58 L 120/68 116/82 Pulse Oximetry 98 99 97 Oxygen Delivery 01/20/22 08:15 Temperature Pulse Rate Respiratory Rate Blood Pressure Pulse Oximetry Oxygen Delivery Ro
[2022-01-20 15:50] VITALS: BP 125/82; PULSE 63; RESP 14; TEMP 36.5; O2SAT 100
[2022-01-20 19:39] LABS: Anion Gap 9 mmol/L (8-16); Blood Urea Nitrogen 20 mg/dL (9-20); Calcium 8.8 mg/dL (8.4-10.2); Carbon Dioxide 28 mmol/L (22-30); Chloride 98 mmol/L (98-107); Estimated CRCL calculation 110 ml/min; Estimated Glomerular Filt Rate > 60; Glucose 94 mg/dL (65-110); Potassium 4.1 mmol/L (3.4-5.0); Sodium 135 mmol/L (137-145)
[2022-01-20 22:00] VITALS: BP 114/73; PULSE 65; TEMP 36; O2SAT 97
[2022-01-21 06:00] VITALS: BP 121/77; PULSE 61; RESP 15; TEMP 35.9; O2SAT 98
--- NOTE | 2022-01-21 07:40 | PM.DS ---
DS: Admitting Diagnosis Discharge Date 01/21/22 Admitting Diagnosis Opioid Withdrawal DS: Discharge Diagnosis Discharge Diagnosis (1) Opiate withdrawal: Code(s): F11.93 - Opioid use, unspecified with withdrawal Status: Acute Assessment and Plan: Suboxone 4 mg daily, care coordination consult for [facility] outpatient referral, clonidine and hydroxyzine for withdrawal symptoms, IV fluids, supportive care with antiemetics 01/16: will continue supportive care for today as patient appears to still be having significant withdrawal symptoms but does still say he wants to abstain from opioid use. Continue IVF for now. 01/17: Patient is more awake in the afternoon than in the morning. Was caught wandering off the floor today. Still appears to be having significant withdrawal with body aches, abdominal pain and diaphoresis. BP has been improving. Will work to titrate off clonidine tomorrow as it may be contributing to the morning sedation and BP has improved. Notable perspiration on exam as well. Patient has been accepted to inpatient rehab facility planned for Friday. -Continue hydroxyzine for anxiety -Dicyclomine ordered for abdominal cramping -Will work to remove clonidine over the weekend -Ibuprofen for myalgias and joint pain 01/19: Will hold clonidine due to low BP. 01/20: Will stop clonidine as normotensive and normal heart rate without it. 01/21: Will discharge today to go to rehab at [place] (2) Homeless: Code(s): Z59.00 - Homelessness unspecified Status: Acute Assessment and Plan: Has been accepted to inpatient rehab facility planned for Friday. (3) Opioid use disorder: Code(s): F11.90 - Opioid use, unspecified, uncomplicated Status: Acute Assessment and Plan: Having some low blood pressures. Clonidine has been discontinued. Will continue buprenorphine for discharge. (4) Leukocytosis: Code(s): D72.829 - Elevated white blood cell count, unspecified Status: Acute Assessment and Plan: Could be reactive, could be secondary to UTI, trend. 01/16: leukocytosis resolve without antibiotics. (5) Acute UTI: Code(s): N39.0 - Urinary tract infection, site not specified Status: Acute Assessment and Plan: Started on Rocephin in the ER, will continue this until culture comes back, urinalysis was abnormal 01/16: urine culture finalized with no growth. (6) Weakness of upper extremity: Code(s): R29.898 - Other symptoms and signs involving the musculoskeletal system Status: Acute Assessment and Plan: Exam normal. CT head and cervical spine with no acute findings to explain the reported weakness. Neurology consulted and recommended a MRI of the brachial plexus with and without contrast. Discussed this with the patient and he was amenable to completing the workup outptient as he needs to be discharged early to day to be at inpatient rehab for substance abuse by 12:30 today. -Patient will get MRI of the brachial plexus with and without contrast outpatient Plan DVT prophylaxis with SCDs GI prophylaxis not indicated Code status full code DS: Summary Hospital Course Reason for hospitalization: Opioid withdrawal Hospital Course: 41M with a past medical history of opioid use disorder who presented to the emergency department with nausea, vomiting and abdominal pain found to be in opioid withdrawal. Patient was admitted for management of withdrawal symptoms of significant nausea, vomiting, hypertension, abdominal pain. Clonidine and buprenorphine were started. Patient expressed desire to enter inpatient rehab facility for his substance abuse. Care coordination referred the patient and he was accepted to [facility] inpatient rehab facility. While hospitalized the patient reported upper extremity weakness. CT head and CT cervical spine did not show any process responsible. Neurology was consulted a
[2022-01-21] MEDS: BUPRENORPHINE HCL (*CRX) 2 MG SUBLINGUAL TABLET 4 MG PO (08:00)
[2022-01-21] MEDS: hydrOXYzine HCL 25 MG TABLET PO (08:00)
[2022-01-21] MEDS: FAMOTIDINE 20 MG/2 ML VIAL IV PUSH (08:01)
[2022-01-21] MEDS: IBUPROFEN 400 MG TABLET PO (08:02)
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
== END 2022-01-21 12:20 | DRG 773 ==
LOC: ANHED 01-15 06:16 → ANH3MEDSUR 01-15 07:29
PROVIDERS: Admitting Provider Internal Medicine; Emergency Provider Emergency Medicine; Visit Provider Family Medicine
DX: F11.93 Opioid use, unspecified with withdrawal (principal); S06.9X9A Unspecified intracranial injury with loss of consciousness of unspecified duration, initial encounter; W22.8XXA Striking against or struck by other objects, initial encounter; R82.90 Unspecified abnormal findings in urine; R29.898 Other symptoms and signs involving the musculoskeletal system; D72.829 Elevated white blood cell count, unspecified; F12.90 Cannabis use, unspecified, uncomplicated; F15.90 Other stimulant use, unspecified, uncomplicated; F17.290 Nicotine dependence, other tobacco product, uncomplicated; I10 Essential (primary) hypertension; Z20.822 Contact with and (suspected) exposure to COVID-19; Z28.21 Immunization not carried out because of patient refusal; Z59.00 Homelessness unspecified
CPT/HCPCS: 36415; 70450; 71045; 72125; 74018; 80048; 80053; 80307; 81001; 81003; 82948; 83605; 83690; 83735; 83880; 84100; 84484; 85025; 85610; 85730; 87086; 93005; 96361; 96365; 96374; 96375; 96376; 99285; A9270; C9803; G0378; G0379; J0696; J0780; J2405; J7030; U0003; U0005